=== PATIENT | male | born 1970 | race Caucasian/White ===

== ENCOUNTER → 2017-01-18 | Outpatient (CLI) | payer OTHER ==
--- NOTE | 2017-01-18 09:04 | DIAGNOSTIC IMAGING REPORT ---
FACIAL BONES < 3 VIEWS CLINICAL HISTORY: Localized swelling, mass and lump on nose.. COMPARISON STUDY: Head CT October 04, 2005. FINDINGS: Lateral view demonstrates mild soft tissue swelling overlying the nasal bones. Lateral view also demonstrates apparent lucency with cortical irregularity of the nasal bones which may be artifactual. No fracture is identified. IMPRESSION: 1. Superior nasal soft tissue swelling. Possible cortical irregularity and relative lucency of the nasal bones is may be artifactual however a maxillofacial CT with contrast could be obtained for further evaluation if persistent swelling to exclude an osseous abnormality. 2. No acute fracture identified. Electronically signed by: Devang Saucedo M.D. 01/18/2017 9:03 AM Dictated Date/Time: 01/18/2017 8:58 AM
== END | disposition home or self-care (01) ==
LOC: C.RADBC 08:39
PROVIDERS: ATTEND Family Medicine
DX: R22.0 Localized swelling, mass and lump, head (principal)

== ENCOUNTER → 2017-01-26 | Outpatient (CLI) | payer OTHER ==
--- NOTE | 2017-01-26 08:39 | DIAGNOSTIC IMAGING REPORT ---
CAROTID DOPPLER NECK ART CLINICAL HISTORY: 46 years-old Male with HX CAROTID BLOCKAGE. Acute tingling sensation of the left hand, worse after exercise. COMPARISON: None available. TECHNIQUE: Multiple real time sonographic images of the carotid bifurcations were obtained assessing hu scale, color Doppler and spectral wave form appearance FINDINGS: RIGHT CAROTID: The peak systolic velocity measured 95 cm/sec. The end diastolic velocity measured 24 cm/sec. The ICA to CCA ratio measured 0.9 which correlates with a stenosis of 0-50%. There is only minimal plaquing of the right carotid bulb. LEFT CAROTID: The peak systolic velocity measured 84 cm/sec. The end diastolic velocity measured 21 cm/sec. The ICA to CCA ratio measured 0.9 which correlates with a stenosis of 0-50%. There is only minimal plaquing of the left carotid bulb. There is normal antegrade vertebral flow bilaterally. IMPRESSION: 1. Only minimal atherosclerotic plaquing of the bilateral carotid bulbs without hemodynamically significant stenosis. 2. Normal antegrade vertebral flow bilaterally. The above report was generated using voice recognition software. It may contain grammatical, syntax or spelling errors. Electronically signed by: Sylvester Singh M.D. 01/26/2017 8:37 AM Dictated Date/Time: 01/26/2017 8:32 AM
== END | disposition home or self-care (01) ==
LOC: C.ULTRBC 01-18 08:35
PROVIDERS: ATTEND Family Medicine
DX: I65.29 Occlusion and stenosis of unspecified carotid artery (principal)

== ENCOUNTER → 2017-02-04 | Outpatient (CLI) | payer OTHER ==
[~2017-02-04] MED LIST: OPTIRAY 320 IV PRN
--- NOTE | 2017-02-04 08:44 | DIAGNOSTIC IMAGING REPORT ---
MAXILLOFACIAL CT WITH CONTRAST CLINICAL HISTORY: Growing facial lump. COMPARISON STUDY: Facial bone radiographs January 18, 2017. TECHNIQUE: Axial images of the facial bones were obtained following intravenous injection of 94 cc of Optiray 320 IV. Sagittal and coronal reconstructions were viewed. FINDINGS: Visualized portions of the intracranial contents are unremarkable. No upper cervical lymphadenopathy is present. Orbits are unremarkable. The globes are intact. Mastoid air cells are clear. There is no significant paranasal sinus disease. There is minimal mucosal thickening of the ethmoid sinuses. Note is made of a lytic slightly expansile lesion in the anterior bilateral nasal bones, centered within the right anterior nasal bone. The bony abnormality measures 1.4 x 1 x 0.8 cm and corresponds to the finding on facial bone radiographs of January 18, 2017. There may be slight extension into the anterior aspect of the bony nasal septum. There is apparent associated overlying soft tissue abnormality which could reflect soft tissue extension or edema. No additional osseous lesions are identified within the facial bones. 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 This corresponds to the finding on facial bone radiographs of January 18, 2017. Associated soft tissue swelling/extension of tumor. The findings are nonspecific however a neoplastic process is the diagnosis of exclusion and this includes both benign and malignant etiologies. ENT consultation for consideration for tissue sampling is recommended. Electronically signed by: Devang Saucedo M.D. 02/04/2017 8:43 AM Dictated Date/Time: 02/04/2017 8:25 AM
== END | disposition home or self-care (01) ==
LOC: C.CTS 07:35
PROVIDERS: ATTEND Family Medicine
DX: D48.0 Neoplasm of uncertain behavior of bone and articular cartilage (principal)